=== PATIENT | female | born 1980 | race African-American/Black ===

== ENCOUNTER 2016-10-23 13:13 | Emergency (ER) | payer SELFPAY ==
[~2016-10-23] VITALS: Ht 167.6 cm; Wt 81.6 kg
--- NOTE | 2016-10-23 13:37 | EKG ---
[facility] [address] [place] [address] Test Date: 2016-10-23 Test Time: 13:29:55 Pat Name: ARNULFO PIERCE Department: Room: Gender: F Supply Chain Logistics Manager: SHERMAN : 1980 Requested By: STAFF NON Order Number: [id number] Reading MD: Yesi Stockton Measurements Intervals Yeso Rate: 86 P: 45 NE: 180 QRS: 29 QRSD: 66 T: 39 QT: 370 QTc: 446 Interpretive Statements SINUS RHYTHM NO SPECIFIC ECG ABNORMALITIES RI6.01 No previous ECG available for comparison Electronically Signed On 10-25-2016 20:22:06 DIRECTOR PHONE by Yesi Stockton
[2016-10-23 14:17] LABS: BASO # 0.1 x10^3/uL (0.0-0.2); BASO % 1 % (0-3); EOS % 1 % (0-3); HEMATOCRIT 35.8 % (36.0-47.0); HEMOGLOBIN 12.5 g/dL (12.0-15.5); LYMPH # 2.6 x10^3/uL (1.0-4.8); LYMPH % 33 % (24-48); MEAN CORPUSCULAR HEMOGLOBIN 32 pg (25-35); MEAN CORPUSCULAR HGB CONC 35 g/dL (31-37); MEAN CORPUSCULAR VOLUME 92 fL (79-100); MONO % 7 % (0-9); NEUT % 58 % (31-73); PLATELET COUNT 237 x10^3/uL (140-400); RED BLOOD COUNT 3.88 x10^6/uL (3.50-5.40); RED CELL DISTRIBUTION WIDTH 13.3 % (11.5-14.5); WHITE BLOOD COUNT 7.8 x10^3/uL (4.0-11.0)
[2016-10-23 14:25] VITALS: BP 113/80
[2016-10-23 14:27] LABS: CALCIUM 9.3 mg/dL (8.5-10.1); CREATININE 0.6 mg/dL (0.6-1.0); GFR 112.5; POTASSIUM 4.1 mmol/L (3.5-5.1)
[2016-10-23] MEDS ORDERED: ASPIRIN 81 MG TAB.CHEW PO ONE (14:30)
[2016-10-23 14:33] LABS: ALBUMIN 3.7 g/dL (3.4-5.0); DIRECT BILIRUBIN 0.1 mg/dL (0.0-0.2); TOTAL BILIRUBIN 0.8 mg/dL (0.2-1.0); TOTAL PROTEIN 6.9 g/dL (6.4-8.2)
--- NOTE | 2016-10-23 14:34 | RAD ---
Chest, 2 views, 10/23/2016: History: Substernal chest pain Comparison is made to a study from 06/19/2007. The heart size and pulmonary vascularity are normal. No pulmonary infiltrates are seen. There is no evidence of pleural fluid. IMPRESSION: No acute cardiopulmonary abnormality is detected.
--- NOTE | 2016-10-23 14:45 | PHYS DOC ---
Past Medical History Past Medical History: CVA Past Surgical History: , Other Additional Past Surgical Histo: right fibula Alcohol Use: None Drug Use: None Adult General Chief Complaint Chief Complaint: CHEST WALL PAIN HPI HPI 36-year-old female presenting to the emergency department today with chest pain. She describes it as a pressure however is worse with coughing and movement. It is nonradiating mild intermittent and not associated with diaphoresis or nausea. She denies a strong family history of heart disease at her age. She denies hemoptysis unilateral leg swelling personal or family history of blood clotting disorders. Review of systems is negative for nausea vomiting diaphoresis fevers or chills. All other review of systems is negative unless otherwise noted in history of present illness. Review of Systems Review of Systems SEE ABOVE. Current Medications Current Medications Current Medications Medications (Trade) Dose Ordered Sig/Hua Start Time Stop Time Status Last Admin Dose Admin Aspirin (Children'S Aspirin) 324 mg 1X ONCE 10/23/16 14:30 10/23/16 14:31 DC 10/23/16 14:24 324 MG Allergies Allergies Allergies Coded Allergies Type Severity Reaction Last Updated Verified No Known Drug Allergies 10/23/16 No Physical Exam Physical Exam Constitutional: Well developed, well nourished, no acute distress, non-toxic appearance. HENT: Normocephalic, atraumatic, bilateral external ears normal, oropharynx moist, no oral exudates, nose normal. [] Eyes: PERRLA, EOMI, conjunctiva normal, no discharge. Neck: Normal range of motion, no tenderness, supple, no stridor. [] Cardiovascular:Heart rate regular rhythm, no murmur [] Lungs & Thorax: Bilateral breath sounds clear to auscultation Abdomen: Bowel sounds normal, soft, no tenderness, no masses, no pulsatile masses. [] Skin: Warm, dry, no erythema, no rash. [] Back: No tenderness, no CVA tenderness. [] Extremities: No tenderness, no cyanosis, no clubbing, ROM intact, no edema. No evidence of DVT present. Neurologic: Alert and oriented X 3, normal motor function, normal sensory function, no focal deficits noted. [] Psychologic: Affect normal, judgement normal, mood normal. [] Current Patient Data Vital Signs Vital Signs Date Time Temp Pulse Resp B/P Pulse Ox O2 Delivery O2 Flow Rate FiO2 10/23/16 14:25 85 20 113/80 98 10/23/16 13:29 97.9 Room Air 97.9 Lab Values Laboratory Tests Test 10/23/16 13:45 White Blood Count 7.8x10^3/uL (4.0-11.0) Red Blood Count 3.88x10^6/uL (3.50-5.40) Hemoglobin 12.5g/dL (12.0-15.5) Hematocrit 35.8% (36.0-47.0) L Mean Corpuscular Volume 92fL (79-100) Mean Corpuscular Hemoglobin 32pg (25-35) Mean Corpuscular Hemoglobin Concent 35g/dL (31-37) Red Cell Distribution Width 13.3% (11.5-14.5) Platelet Count 237x10^3/uL (140-400) Neutrophils (%) (Auto) 58% (31-73) Lymphocytes (%) (Auto) 33% (24-48) Monocytes (%) (Auto) 7% (0-9) Eosinophils (%) (Auto) 1% (0-3) Basophils (%) (Auto) 1% (0-3) Neutrophils # (Auto) 4.5x10^3uL (1.8-7.7) Lymphocytes # (Auto) 2.6x10^3/uL (1.0-4.8) Monocytes # (Auto) 0.5x10^3/uL (0.0-1.1) Eosinophils # (Auto) 0.1x10^3/uL (0.0-0.7) Basophils # (Auto) 0.1x10^3/uL (0.0-0.2) Sodium Level 143mmol/L (136-145) Potassium Level 4.1mmol/L (3.5-5.1) Chloride Level 105mmol/L (98-107) Carbon Dioxide Level 29mmol/L (21-32) Anion Gap 9 (6-14) Blood Urea Nitrogen 10mg/dL (7-20) Creatinine 0.6mg/dL (0.6-1.0) Estimated GFR (Cockcroft-Gault) 112.5 Glucose Level 81mg/dL (70-99) Calcium Level 9.3mg/dL (8.5-10.1) Total Bilirubin 0.8mg/dL (0.2-1.0) Direct Bilirubin 0.1mg/dL (0.0-0.2) Aspartate Amino Transferase (AST) 27U/L (15-37) Alanine Aminotransferase (ALT) 30U/L (14-59) Alkaline Phosphatase 80U/L (46-116) Troponin I Quantitative < 0.017ng/mL (0.000-0.055) GV-Xrn-Y-Type Natriuretic Peptide 23pg/mL (0-124) Total Protein 6.9g/dL (6.4-8.2) Albumin 3.7g/dL (3.4-5.0) Lipase 238U/L (73-393) Laboratory Tests 10/23/16 13:45 Laboratory Tests 10/23/16 13:45 EKG EKG [] Radiology/Procedures Radiology/Procedures [] Course & Med Decision Making Course & Med Decision Making Pertinent Labs and Imaging studies reviewed. (See chart for details) [] 36-year-old female presenting to the emergency department today with chest pain. Vital signs unremarkable. EKG and chest x-ray unremarkable. Physical exam unremarkable. Blood work obtained showed mild nonspecific leukocytosis otherwise unremarkable. Troponin negative. Pain present for greater than 6 hours. 1 troponin sufficient. The patient denied being and her last menstrual period was 2 weeks ago. She denies abdominal pain or vaginal bleeding currently. She received an aspirin in the emergency department today. Dragon Disclaimer Dragon Disclaimer This electronic medical record was generated, in whole or in part, using a voice recognition dictation system. Departure Departure Impression: Primary Impression: Chest pain Disposition: 01 HOME, SELF-CARE Condition: STABLE Referrals: CLARK MENDOZA MD Patient Instructions: Chest Pain (Nonspecific)-Brief Additional Instructions: Thank you for allowing us to participate in your care today. Followup with your primary care physician in 3 days if your symptoms do not improve. If you do not have a primary care provider you can ask for a list of our primary care providers. Return to the emergency department you have any new or concerning findings. This should be evaluated by the primary care physician and any necessary consulting services for continued management within a few days after discharge. Return to emergency room if you have any new or concerning symptoms including but not limited to fever, chills, nausea, vomiting, intractable pain, any new rashes, chest pain, shortness of air, uncontrolled bleeding, difficulty breathing, and/or vision loss. PARMINDER PHELAN MD Oct 23, 2016 14:45
== END 2016-10-23 15:04 | disposition home or self-care (01) ==
LOC: ER 13:13
DX: R07.89 Other chest pain (principal); R05 Cough; Z86.73 Personal history of transient ischemic attack (TIA), and cerebral infarction without residual deficits
CPT/HCPCS: 36415; 71020; 80048; 80076; 83690; 83880; 84484; 85027; 93005; 99285-25

== ENCOUNTER 2016-11-20 16:16 | Emergency (ER) | payer SELFPAY ==
[2016-11-20 16:32] VITALS: BP 131/84
--- NOTE | 2016-11-20 16:57 | RAD ---
Chest, 2 views, 11/20/2016: History: Cough Comparison is made to a study from 10/23/2016. The heart size and pulmonary vascularity are normal. No pulmonary infiltrates are seen. There is no evidence of pleural fluid. IMPRESSION: No acute cardiopulmonary abnormality is detected.
--- NOTE | 2016-11-20 17:14 | PHYS DOC ---
Past Medical History Past Medical History: CVA Past Surgical History: , Other Additional Past Surgical Histo: right fibula Alcohol Use: None Drug Use: None Adult General Chief Complaint Chief Complaint: Congestion HPI HPI Patient is a 36 year old female who presents with 1 week of rhinorrhea, nasal congestion, cough with yellow sputum, chest pain with cough, and dyspnea. States she has had a stroke in the past (and this does not feel like the stroke contrary to the triage note), but she feels like this with prior pneumonia. She denies sore throat, sick contacts, rash, abdominal pain, nausea or vomiting , diarrhea, dysuria. Review of Systems Review of Systems Constitutional: Denies fever or chills [] Eyes: Denies change in visual acuity, redness, or eye pain [] HENT: Denies nasal congestion or sore throat [] Respiratory: Has cough or shortness of breath [] Cardiovascular: No additional information not addressed in HPI [] GI: Denies abdominal pain, nausea, vomiting, bloody stools or diarrhea [] : Denies dysuria or hematuria [] Musculoskeletal: Denies back pain or joint pain [] Integument: Denies rash or skin lesions [] Neurologic: Denies headache, focal weakness or sensory changes [] Endocrine: Denies polyuria or polydipsia [] Allergies Allergies Allergies Coded Allergies Type Severity Reaction Last Updated Verified No Known Drug Allergies 10/23/16 No Physical Exam Physical Exam Constitutional: Well developed, well nourished, no acute distress, non-toxic appearance. [] HENT: Normocephalic, atraumatic, bilateral external ears normal, oropharynx moist, no oral exudates, nose normal. [] Eyes: PERRLA, EOMI, conjunctiva normal, no discharge. [] Neck: Normal range of motion, no tenderness, supple, no stridor. [] Cardiovascular:Heart rate regular rhythm [] Lungs & Thorax: Bilateral breath sounds clear to auscultation [] Abdomen: Bowel sounds normal, soft, no tenderness. [] Skin: Warm, dry, no erythema, no rash. [] Back: Normal range of motion. [] Extremities: No tenderness, ROM intact, no edema, no palpable cord. [] Neurologic: Alert and oriented X 3, normal motor function, normal sensory function, no focal deficits noted. [] Psychologic: Affect normal, judgement normal, mood normal. [] Current Patient Data Vital Signs Vital Signs Date Time Temp Pulse Resp B/P Pulse Ox O2 Delivery O2 Flow Rate FiO2 11/20/16 17:20 101 18 100 Room Air 11/20/16 16:32 98.5 131/84 98.5 Radiology/Procedures Radiology/Procedures Chest xray as interpreted by me with no acute cardiopulmonary disease process Course & Med Decision Making Course & Med Decision Making Pertinent Labs and Imaging studies reviewed. (See chart for details) She appears well on exam. Imaging is unremarkable. Offered tylenol or ibuprofen for pain here, but she declined. Discussed symptom management for likely viral bronchitis. Return precautions given. She understands plan. Dragon Disclaimer Dragon Disclaimer This electronic medical record was generated, in whole or in part, using a voice recognition dictation system. Departure Departure Impression: Primary Impression: Viral upper respiratory infection Disposition: HOME, SELF-CARE Condition: STABLE Referrals: NO PCP (PCP) Patient Instructions: Upper Respiratory Infection, Adult, [id number] Additional Instructions: Take tylenol or ibuprofen as needed for pain. Drink liquids to stay hydrated. Follow up with your primary care doctor. Return for any concerns. Susana COURTNEY MD Nov 20, 2016 17:14
== END 2016-11-20 17:25 | disposition home or self-care (01) ==
LOC: ER 16:16
DX: J06.9 Acute upper respiratory infection, unspecified (principal); Z86.73 Personal history of transient ischemic attack (TIA), and cerebral infarction without residual deficits
CPT/HCPCS: 71020; 99284-25

== ENCOUNTER 2016-11-20 18:50 | Emergency (ER) | payer SELFPAY ==
[~2016-11-20] VITALS: Ht 167.6 cm; Wt 81.6 kg
[2016-11-20 20:14] VITALS: BP 113/57
--- NOTE | 2016-11-20 20:30 | PHYS DOC ---
Past Medical History Past Medical History: CVA, Other Additional Past Medical Histor: BRONCHITIS Past Surgical History: , Other Additional Past Surgical Histo: right fibula Alcohol Use: None Drug Use: None Adult General Chief Complaint Chief Complaint: SHORTNESS OF BREATH [facility] Patient is a 36 year old female who presents with 1 week of rhinorrhea, nasal congestion, cough with yellow sputum, chest pain with cough, and dyspnea. She denies sore throat, sick contacts, rash, abdominal pain, nausea or vomiting, diarrhea, dysuria. She was sitting in lobby waiting for a ride and had continued symptoms. She discussed here symptoms with someone in the lobby who talked her into checking in a second time to be seen. She has no new symptoms. Review of Systems Review of Systems Constitutional: Denies fever or chills [] Eyes: Denies change in visual acuity, redness, or eye pain [] HENT: Denies nasal congestion or sore throat [] Respiratory: Has cough and shortness of breath [] Cardiovascular: No additional information not addressed in [facility] [] GI: Denies abdominal pain, nausea, vomiting, bloody stools or diarrhea [] : Denies dysuria or hematuria [] Musculoskeletal: Denies back pain or joint pain [] Integument: Denies rash or skin lesions [] Neurologic: Denies headache, focal weakness or sensory changes [] Endocrine: Denies polyuria or polydipsia [] Allergies Allergies Allergies Coded Allergies Type Severity Reaction Last Updated Verified No Known Drug Allergies 10/23/16 No Physical Exam Physical Exam Constitutional: Well developed, well nourished, no acute distress, non-toxic appearance. [] HENT: Normocephalic, atraumatic, bilateral external ears normal, oropharynx moist, no oral exudates, nose normal. [] Eyes: PERRLA, EOMI, conjunctiva normal, no discharge. [] Neck: Normal range of motion, no tenderness, supple, no stridor. [] Cardiovascular:Heart rate regular rhythm [] Lungs & Thorax: Bilateral breath sounds clear to auscultation [] Abdomen: Bowel sounds normal, soft, no tenderness. [] Skin: Warm, dry, no erythema, no rash. [] Back: Normal ROM. [] Extremities: No tenderness, ROM intact, no edema, no palpable cord. [] Neurologic: Alert and oriented X 3, normal motor function, normal sensory function, no focal deficits noted. [] Psychologic: Affect normal, judgement normal, mood normal. [] Current Patient Data Vital Signs Vital Signs Date Time Temp Pulse Resp B/P Pulse Ox O2 Delivery O2 Flow Rate FiO2 11/20/16 20:14 100 18 113/57 99 Room Air 11/20/16 19:44 98.1 98.1 Course & Med Decision Making Course & Med Decision Making Provided reassurance from her prior workup. Discussed further symptomatic care. Offered prescription for cough syrup, but she declined. Offered Tylenol or ibuprofen again, but she declined. She then wished to leave, so she was discharged. Return precautions given again. She understands plan. Dragon Disclaimer Dragon Disclaimer This electronic medical record was generated, in whole or in part, using a voice recognition dictation system. Departure Departure Impression: Primary Impression: Viral upper respiratory infection Disposition: HOME, SELF-CARE Condition: STABLE Referrals: NO PCP (PCP) Patient Instructions: Upper Respiratory Infection, Adult, [id number] Additional Instructions: Take Tylenol or ibuprofen as needed for pain. Follow-up with your primary care doctor. Return for any concerns. Susana COURTNEY MD Nov 20, 2016 20:30
== END 2016-11-20 20:33 | disposition home or self-care (01) ==
LOC: ER 18:50
DX: J06.9 Acute upper respiratory infection, unspecified (principal); Z86.73 Personal history of transient ischemic attack (TIA), and cerebral infarction without residual deficits
CPT/HCPCS: 99283

== ENCOUNTER 2020-02-13 21:27 | Emergency (ER) | payer SELFPAY ==
[~2020-02-13] VITALS: Ht 167.6 cm; Wt 90.9 kg
[2020-02-13] MEDS ORDERED: ASPIRIN CHEWABLE 81 MG TABLET. PO ONE (21:45)
[2020-02-13] MEDS ORDERED: IV NORMAL SALINE 1000ML BAG 1,000 ML IV SCH (21:45)
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
[2020-02-13 22:15] LABS: BILIRUBIN,URINE NEGATIVE (NEG); CLARITY,URINE CLEAR; COLOR,URINE YELLOW; NITRITE,URINE NEGATIVE (NEG); PH,URINE 5.5 (<5.0-8.0); PROTEIN,URINE NEGATIVE (NEG-TRACE); UROBILINOGEN,URINE 0.2 mg/dL (0.2 mg/dL)
[2020-02-13 22:20] LABS: BASO # 0.1 x10^3/uL (0.0-0.2); BASO % 1 % (0-3); EOS % 0 % (0-3); HEMATOCRIT 41.3 % (36.0-47.0); HEMOGLOBIN 14.8 g/dL (12.0-15.5); LYMPH # 1.9 x10^3/uL (1.0-4.8); LYMPH % 21 % (24-48); MEAN CORPUSCULAR HEMOGLOBIN 34 pg (25-35); MEAN CORPUSCULAR HGB CONC 36 g/dL (31-37); MEAN CORPUSCULAR VOLUME 95 fL (79-100); MONO # 0.7 x10^3/uL (0.0-1.1); MONO % 8 % (0-9); NEUT # 6.6 x10^3/uL (1.8-7.7); NEUT % 70 % (31-73); PLATELET COUNT 254 x10^3/uL (140-400); RED BLOOD COUNT 4.36 x10^6/uL (3.50-5.40); RED CELL DISTRIBUTION WIDTH 13.2 % (11.5-14.5); WHITE BLOOD COUNT 9.3 x10^3/uL (4.0-11.0)
[2020-02-13 22:20] LABS: SQUAMOUS EPITHELIAL CELL,UR MANY /LPF
[2020-02-13 22:21] LABS: BACTERIA,URINE 0 /HPF (0-FEW)
[2020-02-13 22:22] LABS: CALCIUM 9.1 mg/dL (8.5-10.1); CREATININE 0.7 mg/dL (0.6-1.0); GFR 112.1; POTASSIUM 3.5 mmol/L (3.5-5.1)
[2020-02-13 22:28] LABS: ALBUMIN 4.1 g/dL (3.4-5.0); ALBUMIN/GLOBULIN RATIO 1.1 (1.0-1.7); MAGNESIUM 1.7 mg/dL (1.8-2.4); TOTAL BILIRUBIN 1.4 mg/dL (0.2-1.0)
--- NOTE | 2020-02-13 23:00 | RAD ---
PORTABLE CHEST 1V History: Reason: chest wall pain / Spl. Instructions: / History: Comparison: November 20, 2016 Findings: No consolidation or pleural effusion. Normal heart size. No pneumothorax. Impression: 1. No acute cardiopulmonary process. Electronically signed by: James Anna DO (02/13/2020 10:57 PM) [facility]
[2020-02-13 23:46] LABS: BARBITURATES NEG (NEG); BENZODIAZEPINES NEG (NEG); CANNABINOIDS NEG (NEG); COCAINE NEG (NEG); METHADONE NEG (NEG); OPIATES NEG (NEG); PHENCYCLIDINE NEG (NEG)
[2020-02-13 23:47] LABS: AMPHETAMINE/METHAMPHETAMINE POS (NEG)
[2020-02-13] MEDS ORDERED: DICL50TA4 PO (23:58)
[2020-02-14 00:02] VITALS: BP 126/78
--- NOTE | 2020-02-14 03:18 | EKG ---
[address] [place] [address] Test Date: 2020-02-13 Test Time: 21:42:49 Pat Name: ARNULFO PIERCE Department: Room: Gender: F Lath Hand: : 1980 Requested By: TETE MARTINEZ Order Number: [id number] Reading MD: Measurements Intervals [place] Rate: 133 P: GA: QRS: 27 QRSD: 58 T: 37 QT: 292 QTc: 436 Interpretive Statements SUPRAVENTRICULAR TACHYCARDIA OTHERWISE NORMAL ECG RI6.01 No previous ECG available for comparison
== END 2020-02-14 00:21 | disposition home or self-care (01) ==
LOC: ER 21:27
DX: F41.0 Panic disorder [episodic paroxysmal anxiety] (principal); R07.89 Other chest pain; F15.10 Other stimulant abuse, uncomplicated; Z87.891 Personal history of nicotine dependence; Z86.73 Personal history of transient ischemic attack (TIA), and cerebral infarction without residual deficits
CPT/HCPCS: 36415; 71045; 80053; 80307; 81001; 81025; 83690; 83735; 83880; 84484; 85025; 85379; 93005; 96374; 99285; J2060; J7030